=== PATIENT | male | born 1950 | race Caucasian/White ===

== ENCOUNTER 2022-07-09 16:31 | Inpatient (IN) ==
[2022-07-09] MEDS ORDERED: VANCOMYCIN INJ 1,000 MG in SODIUM CHLORIDE 0.9% 250 ML IV STA (17:09)
[2022-07-09] MEDS ORDERED: SODIUM CHLORIDE 0.9% 1,000 ML IV STA (17:09)
[2022-07-09] MEDS ORDERED: ALBUTEROL 2.5 MG/3 ML NEB RESP TX PRN (17:24)
[2022-07-09] MEDS ORDERED: ONDANSETRON 4 MG/2 ML VIAL IV PRN (17:24)
[2022-07-09] MEDS ORDERED: LACTATED RINGERS 1,000 ML IV ONE ×2 (17:29→22:30)
[2022-07-09] MEDS: NOREPINEPHRINE 8 MG in SODIUM CHLORIDE 0.9% 242 ML IV PRN (17:39)
[2022-07-09] MEDS ORDERED: fentaNYL 100 MCG/2 ML VIAL IV STA (17:41)
[2022-07-09] MEDS ORDERED: fentaNYL 100 MCG/2 ML VIAL ONE (17:42)
[2022-07-09] MEDS ORDERED: cefTRIAXone 1,000 MG in SODIUM CHLORIDE 0.9% 100 ML IV ONE (17:43)
[2022-07-09] MEDS ORDERED: MIDAZOLAM 2 MG/2 ML VIAL ONE ×2 (18:07→19:25)
[2022-07-09] MEDS ORDERED: ETOMIDATE 40 MG/20 ML VIAL IV ONE (18:07)
[2022-07-09] MEDS ORDERED: SEVOFLURANE 1 UNIT/15 MINUTE INH ONE (18:07)
[2022-07-09] MEDS ORDERED: ROCURONIUM 50 MG/5 ML VIAL IV ONE ×2 (18:07→19:25)
[2022-07-09] MEDS ORDERED: LIDOCAINE 2% 5 ML VIAL ONE (18:07)
[2022-07-09 18:19] LABS: Basophils % 0.2 % (0.0-0.8); Eosinophils % 0.1 % (0.00-10.9); Hematocrit 33.4 VOL% (42.0-52.0); Hemoglobin 10.4 GM/DL (14.0-18.0); Immature Granulocytes % 1.6 %; Immature Granulocytes Absolute 0.32 #; Lymphocytes # 0.6 10*3/uL (1.4-4.0); Lymphocytes % 2.7 % (21.2-54.2); Mean Corpuscular HGB Conc 31.1 GM/DL (32-36); Mean Corpuscular Volume 94.1 FL (87-102); Mean Platelet Volume 9.5 FL (9.6-12.0); Monocytes # 1.2 10*3/uL (0.11-0.8); Monocytes % 5.6 % (1.7-12.7); Neutrophils % 89.8 % (38.7-73.9); Platelet Count 310 T/CUMM (130-400); Red Blood Count 3.55 MC/CUMM (3.8-5.5); Red Cell Distribution Width 12.7 % (9.3-17.3); White Blood Count 20.6 T/CUMM (4-12)
[2022-07-09 18:39] LABS: Albumin 2.6 G/DL (3.4-5.0); Bilirubin,Total 0.7 MG/DL (0.20-1.00); Thyroid Stimulating Hormone 0.326 uIU/ml (0.358-3.74); Total Protein 6.7 G/DL (6.4-8.2)
[2022-07-09 19:09] LABS: RBC,Urine 63 /HPF (0-4); Squamous Epithelial Cell,Urine Occasional /HPF (0-10)
[2022-07-09 19:10] LABS: Glucose,Urine (UA) Negative (Negative); Ketones,Urine 15 mg/dL (Negative); Nitrite,Urine Negative (Negative); Protein,Urine 30 mg/dL (Negative); Urine Appearance Clear (Clear); Urine Color Dark Yellow (Yellow); Urine Specific Gravity 1.025 (1.001-1.035); Urine pH 5.5 (4.5-8.0)
[2022-07-09 19:11] LABS: Bilirubin,Urine Small mg/dL (Negative); Blood, Urine Large mg/dL (Negative)
[2022-07-09] MEDS ORDERED: MIDAZOLAM DRIP 100 MG/100 ML PREMIX IV PRN (19:45)
[2022-07-09] MEDS ORDERED: fentaNYL 100 MCG/2 ML VIAL IV ONE (19:49)
[2022-07-09] MEDS: HYDROCORTISONE 100 MG VIAL IV SCH (20:01)
[2022-07-09] MEDS: PANTOPRAZOLE 40 MG VIAL IV SCH (20:07)
[2022-07-09 20:22] LABS: ABG Base Excess -2.6 MMOL/L (-2.5-2.5); ABG HCO3 22.2 MMOL/L (20-26); ABG Oxygen Saturation 97.5 % (95-100); ABG PCO2 39.9 MM HG (35-48); ABG TCO2 20.4 MMOL/L (23-27)
[2022-07-09] MEDS: ENOXAPARIN 40 MG/0.4 ML SYRINGE SUBCUT SCH (20:35)
[2022-07-09 21:58] LABS: Band Neutrophils 9 % (0-10); Lymphocytes 6 % (20-55); Total Cells Counted 100
[2022-07-09 21:59] LABS: Platelet Estimate Normal
[2022-07-10] MEDS: HYDROCORTISONE 100 MG VIAL IV SCH ×3 (02:22→17:38)
[2022-07-10 04:14] LABS: ABG Base Excess 0.2 MMOL/L (-2.5-2.5); ABG HCO3 24.6 MMOL/L (20-26); ABG Oxygen Saturation 99.4 % (95-100); ABG PCO2 37.8 MM HG (35-48); ABG PH 7.419 (7.35-7.45); ABG TCO2 21.8 MMOL/L (23-27)
[2022-07-10 04:26] LABS: Basophils % 0.2 % (0.0-0.8); Eosinophils % 0.1 % (0.00-10.9); Hematocrit 31.3 VOL% (42.0-52.0); Hemoglobin 10.1 GM/DL (14.0-18.0); Immature Granulocytes % 1.3 %; Immature Granulocytes Absolute 0.32 #; Lymphocytes # 0.6 10*3/uL (1.4-4.0); Lymphocytes % 2.4 % (21.2-54.2); Mean Corpuscular HGB Conc 32.3 GM/DL (32-36); Mean Corpuscular Volume 90.5 FL (87-102); Mean Platelet Volume 9.5 FL (9.6-12.0); Monocytes # 1.3 10*3/uL (0.11-0.8); Monocytes % 5.1 % (1.7-12.7); Neutrophils % 90.9 % (38.7-73.9); Platelet Count 316 T/CUMM (130-400); Red Blood Count 3.46 MC/CUMM (3.8-5.5); Red Cell Distribution Width 13.1 % (9.3-17.3)
[2022-07-10 04:40] LABS: Albumin 2.3 G/DL (3.4-5.0); Calcium 8.7 MG/DL (8.5-10.1); Osmolality,Calculated 283.8 MOS/KG (273-304); Potassium 4.4 MMOL/L (3.5-5.1); Total Protein 6.3 G/DL (6.4-8.2)
[2022-07-10 05:17] LABS: Band Neutrophils 7 % (0-10); Lymphocytes 2 % (20-55); Metamyelocytes 3 %; Microcytosis Slight; Ovalocytes Slight; Total Cells Counted 100
[2022-07-10 05:18] LABS: Platelet Estimate Normal
[2022-07-10] MEDS: cefTRIAXone 1,000 MG in SODIUM CHLORIDE 0.9% 100 ML IV SCH (09:40)
[2022-07-10] MEDS: PROPAFENONE 150 MG TABLET PO SCH ×2 (11:17→20:41)
[2022-07-10 13:25] LABS: Arterial Base Excess iSTAT 2 MMOL/L (-2.5-2.5); Arterial Bicarbonate iSTAT 27.1 MMOL/L (20-26); Arterial O2 Saturation iSTAT 97 % (95-100); Arterial PCO2 iSTAT 41 MM HG (35-48); Arterial PO2 iSTAT 93 MM HG (80-95); Arterial Total CO2 iSTAT 28 MMO/L (23-27); Arterial pH iSTAT 7.424 (7.35-7.45)
[2022-07-10] MEDS: PANTOPRAZOLE 40 MG VIAL IV SCH (17:17)
[2022-07-10] MEDS: ENOXAPARIN 40 MG/0.4 ML SYRINGE SUBCUT SCH (20:41)
[2022-07-11] MEDS: NOREPINEPHRINE 8 MG in SODIUM CHLORIDE 0.9% 242 ML IV PRN (02:34)
[2022-07-11] MEDS: HYDROCORTISONE 100 MG VIAL IV SCH ×3 (03:01→18:16)
[2022-07-11 03:24] LABS: ABG Base Excess 2.3 MMOL/L (-2.5-2.5); ABG HCO3 26.4 MMOL/L (20-26); ABG Oxygen Saturation 96.5 % (95-100); ABG PCO2 49.8 MM HG (35-48); ABG PH 7.364 (7.35-7.45); ABG PO2 86.4 MM HG (80-95); ABG TCO2 25.9 MMOL/L (23-27); Basophils % 0.1 % (0.0-0.8); Eosinophils % 0.1 % (0.00-10.9); Immature Granulocytes % 1.7 %; Immature Granulocytes Absolute 0.46 #; Lymphocytes # 1.5 10*3/uL (1.4-4.0); Lymphocytes % 5.6 % (21.2-54.2); Mean Corpuscular HGB Conc 32.3 GM/DL (32-36); Mean Corpuscular Volume 93.4 FL (87-102); Mean Platelet Volume 9.8 FL (9.6-12.0); Monocytes # 1.7 10*3/uL (0.11-0.8); Monocytes % 6.2 % (1.7-12.7); Neutrophils % 86.3 % (38.7-73.9); Platelet Count 320 T/CUMM (130-400); Red Blood Count 3.32 MC/CUMM (3.8-5.5); Red Cell Distribution Width 13.2 % (9.3-17.3); White Blood Count 27.5 T/CUMM (4-12)
[2022-07-11 03:38] LABS: Calcium 8.7 MG/DL (8.5-10.1); Potassium 4.1 MMOL/L (3.5-5.1)
[2022-07-11 04:08] LABS: Band Neutrophils 2 % (0-10); Lymphocytes 8 % (20-55); Total Cells Counted 100
[2022-07-11 04:09] LABS: Platelet Estimate Normal
[2022-07-11] MEDS ORDERED: LACTATED RINGERS 250 ML IV ONE (05:27)
[2022-07-11] MEDS: LACTATED RINGERS 1,000 ML IV SCH ×2 (06:50→18:05)
[2022-07-11] MEDS: cefTRIAXone 1,000 MG in SODIUM CHLORIDE 0.9% 100 ML IV SCH (09:35)
[2022-07-11] MEDS: PROPAFENONE 150 MG TABLET PO SCH ×2 (09:42→20:47)
[2022-07-11] MEDS: AMPICILLIN INJ 1,000 MG in SODIUM CHLORIDE 0.9% 100 ML IV SCH ×3 (10:21→20:47)
[2022-07-11] MEDS: PANTOPRAZOLE 40 MG VIAL IV SCH (16:56)
[2022-07-11] MEDS: MORPHINE 2 MG/1 ML SYRINGE IV PRN (19:46)
[2022-07-11] MEDS: ENOXAPARIN 40 MG/0.4 ML SYRINGE SUBCUT SCH (20:47)
[2022-07-11] MEDS: busPIRone 5 MG TABLET PO PRN (22:34)
[2022-07-12] MEDS: MORPHINE 2 MG/1 ML SYRINGE IV PRN ×3 (02:54→18:02)
[2022-07-12] MEDS: AMPICILLIN INJ 1,000 MG in SODIUM CHLORIDE 0.9% 100 ML IV SCH ×2 (02:55→08:00)
[2022-07-12] MEDS: HYDROCORTISONE 100 MG VIAL IV SCH ×4 (02:55→18:02)
[2022-07-12 04:26] LABS: Basophils % 0.1 % (0.0-0.8); Hematocrit 29.8 VOL% (42.0-52.0); Hemoglobin 9.5 GM/DL (14.0-18.0); Immature Granulocytes % 1.2 %; Immature Granulocytes Absolute 0.28 #; Lymphocytes # 1.5 10*3/uL (1.4-4.0); Lymphocytes % 6.5 % (21.2-54.2); Mean Corpuscular HGB Conc 31.9 GM/DL (32-36); Mean Corpuscular Volume 91.7 FL (87-102); Mean Platelet Volume 10.5 FL (9.6-12.0); Monocytes # 0.8 10*3/uL (0.11-0.8); Monocytes % 3.6 % (1.7-12.7); Neutrophils % 88.6 % (38.7-73.9); Platelet Count 315 T/CUMM (130-400); Red Blood Count 3.25 MC/CUMM (3.8-5.5); Red Cell Distribution Width 13.2 % (9.3-17.3); White Blood Count 22.5 T/CUMM (4-12)
[2022-07-12 04:54] LABS: Calcium 8.5 MG/DL (8.5-10.1); Osmolality,Calculated 298.8 MOS/KG (273-304); Potassium 4.2 MMOL/L (3.5-5.1)
[2022-07-12 05:19] LABS: Band Neutrophils 6 % (0-10); Hypochromia Slight; Lymphocytes 10 % (20-55); Microcytosis Slight; Total Cells Counted 100
[2022-07-12 05:20] LABS: Ovalocytes Slight
[2022-07-12] MEDS: PROPAFENONE 150 MG TABLET PO SCH ×2 (09:17→20:35)
[2022-07-12] MEDS: LACTATED RINGERS 1,000 ML IV SCH ×2 (09:47→09:48)
[2022-07-12] MEDS: CIPROFLOXACIN INJ 400 MG/200 ML PREMIX IV SCH ×2 (10:55→23:50)
[2022-07-12] MEDS: PANTOPRAZOLE 40 MG VIAL IV SCH (18:02)
[2022-07-12] MEDS: ENOXAPARIN 40 MG/0.4 ML SYRINGE SUBCUT SCH (20:36)
[2022-07-13] MEDS: MORPHINE 2 MG/1 ML SYRINGE IV PRN ×5 (01:18→21:13)
[2022-07-13] MEDS: LACTATED RINGERS 1,000 ML IV SCH ×2 (01:19→17:11)
[2022-07-13] MEDS: HYDROCORTISONE 100 MG VIAL IV SCH ×3 (01:47→20:19)
[2022-07-13 05:31] LABS: Basophils % 0.1 % (0.0-0.8); Hematocrit 29.4 VOL% (42.0-52.0); Hemoglobin 9.5 GM/DL (14.0-18.0); Immature Granulocytes % 1.4 %; Lymphocytes # 1.7 10*3/uL (1.4-4.0); Lymphocytes % 11.6 % (21.2-54.2); Mean Corpuscular HGB Conc 32.3 GM/DL (32-36); Mean Platelet Volume 10.3 FL (9.6-12.0); Monocytes # 0.6 10*3/uL (0.11-0.8); Monocytes % 4.4 % (1.7-12.7); Neutrophils % 82.5 % (38.7-73.9); Platelet Count 272 T/CUMM (130-400); Red Blood Count 3.23 MC/CUMM (3.8-5.5); Red Cell Distribution Width 13.2 % (9.3-17.3); White Blood Count 14.3 T/CUMM (4-12)
[2022-07-13 05:48] LABS: Bilirubin,Total 0.4 MG/DL (0.20-1.00); Calcium 8.9 MG/DL (8.5-10.1); Osmolality,Calculated 294.1 MOS/KG (273-304); Potassium 4.1 MMOL/L (3.5-5.1); Total Protein 5.3 G/DL (6.4-8.2)
[2022-07-13] MEDS: PROPAFENONE 150 MG TABLET PO SCH ×2 (08:55→20:20)
[2022-07-13] MEDS: CIPROFLOXACIN INJ 400 MG/200 ML PREMIX IV SCH (13:04)
[2022-07-13] MEDS: AMPICILLIN INJ 2,000 MG in SODIUM CHLORIDE 0.9% 100 ML IV SCH ×2 (17:10→21:13)
[2022-07-13] MEDS: PANTOPRAZOLE 40 MG VIAL IV SCH (17:11)
[2022-07-13] MEDS: ENOXAPARIN 40 MG/0.4 ML SYRINGE SUBCUT SCH (20:20)
[2022-07-14] MEDS: MORPHINE 2 MG/1 ML SYRINGE IV PRN ×2 (01:46→10:21)
[2022-07-14] MEDS: HYDROCORTISONE 100 MG VIAL IV SCH ×2 (04:29→21:09)
[2022-07-14] MEDS: AMPICILLIN INJ 2,000 MG in SODIUM CHLORIDE 0.9% 100 ML IV SCH ×4 (04:29→21:09)
[2022-07-14 05:14] LABS: Basophils % 0.1 % (0.0-0.8); Hemoglobin 9.9 GM/DL (14.0-18.0); Immature Granulocytes % 3.5 %; Immature Granulocytes Absolute 0.39 #; Lymphocytes # 2.4 10*3/uL (1.4-4.0); Lymphocytes % 21.5 % (21.2-54.2); Mean Corpuscular HGB Conc 31.9 GM/DL (32-36); Mean Corpuscular Volume 90.4 FL (87-102); Mean Platelet Volume 10.2 FL (9.6-12.0); Monocytes # 0.9 10*3/uL (0.11-0.8); Monocytes % 8.4 % (1.7-12.7); Neutrophils % 66.5 % (38.7-73.9); Platelet Count 312 T/CUMM (130-400); Red Blood Count 3.43 MC/CUMM (3.8-5.5); Red Cell Distribution Width 13.3 % (9.3-17.3)
[2022-07-14 05:33] LABS: Bilirubin,Total 0.4 MG/DL (0.20-1.00); Calcium 8.8 MG/DL (8.5-10.1); Potassium 3.8 MMOL/L (3.5-5.1); Total Protein 5.4 G/DL (6.4-8.2)
[2022-07-14] MEDS: PROPAFENONE 150 MG TABLET PO SCH ×2 (08:55→21:08)
[2022-07-14] MEDS: LACTATED RINGERS 1,000 ML IV SCH ×3 (08:55→22:15)
[2022-07-14] MEDS: LOSARTAN 50 MG TABLET PO SCH (12:11)
[2022-07-14] MEDS: ENOXAPARIN 100 MG/ML SYRINGE SUBCUT SCH ×2 (12:12→21:45)
[2022-07-14] MEDS: traMADol 50 MG TABLET PO PRN ×2 (15:47→21:08)
[2022-07-14] MEDS: PANTOPRAZOLE 40 MG VIAL IV SCH (17:38)
[2022-07-14] MEDS: busPIRone 5 MG TABLET PO PRN (21:08)
[2022-07-15] MEDS: traMADol 50 MG TABLET PO PRN ×5 (01:20→21:46)
[2022-07-15] MEDS: AMPICILLIN INJ 2,000 MG in SODIUM CHLORIDE 0.9% 100 ML IV SCH ×4 (04:53→21:47)
[2022-07-15 06:28] LABS: Basophils % 0.2 % (0.0-0.8); Eosinophils # 0.1 10*3/uL (0.0-0.87); Eosinophils % 0.6 % (0.00-10.9); Hematocrit 30.2 VOL% (42.0-52.0); Hemoglobin 9.7 GM/DL (14.0-18.0); Immature Granulocytes % 3.8 %; Immature Granulocytes Absolute 0.34 #; Lymphocytes # 2.4 10*3/uL (1.4-4.0); Lymphocytes % 26.9 % (21.2-54.2); Mean Corpuscular HGB Conc 32.1 GM/DL (32-36); Mean Platelet Volume 10.4 FL (9.6-12.0); Monocytes % 11.4 % (1.7-12.7); Neutrophils % 57.1 % (38.7-73.9); Platelet Count 320 T/CUMM (130-400); Red Blood Count 3.32 MC/CUMM (3.8-5.5); Red Cell Distribution Width 13.3 % (9.3-17.3)
[2022-07-15 06:53] LABS: Calcium 8.5 MG/DL (8.5-10.1); Osmolality,Calculated 294.7 MOS/KG (273-304); Potassium 3.7 MMOL/L (3.5-5.1)
[2022-07-15] MEDS: ENOXAPARIN 100 MG/ML SYRINGE SUBCUT SCH ×2 (09:12→21:47)
[2022-07-15] MEDS: LOSARTAN 50 MG TABLET PO SCH (09:12)
[2022-07-15] MEDS: PROPAFENONE 150 MG TABLET PO SCH ×2 (09:12→21:46)
[2022-07-15] MEDS: HYDROCORTISONE 100 MG VIAL IV SCH ×2 (09:13→21:47)
[2022-07-15] MEDS: LACTULOSE 20 GM/30 ML UDCUP PO SCH ×2 (10:41→21:45)
[2022-07-15] MEDS: MORPHINE 2 MG/1 ML SYRINGE IV PRN (13:40)
[2022-07-15] MEDS: PANTOPRAZOLE 40 MG VIAL IV SCH (17:23)
[2022-07-15] MEDS: LACTATED RINGERS 1,000 ML IV SCH (19:32)
[2022-07-16] MEDS: traMADol 50 MG TABLET PO PRN ×5 (02:52→21:46)
[2022-07-16] MEDS: AMPICILLIN INJ 2,000 MG in SODIUM CHLORIDE 0.9% 100 ML IV SCH ×4 (04:22→21:48)
[2022-07-16] MEDS ORDERED: cefTRIAXone 1,000 MG in SODIUM CHLORIDE 0.9% 100 ML IV ONE (07:52)
[2022-07-16] MEDS: LOSARTAN 50 MG TABLET PO SCH (09:51)
[2022-07-16] MEDS: HYDROCORTISONE 100 MG VIAL IV SCH ×2 (09:51→21:48)
[2022-07-16] MEDS: LACTULOSE 20 GM/30 ML UDCUP PO SCH ×2 (09:51→21:46)
[2022-07-16] MEDS: PROPAFENONE 150 MG TABLET PO SCH ×2 (09:52→21:45)
[2022-07-16] MEDS: ENOXAPARIN 100 MG/ML SYRINGE SUBCUT SCH ×2 (10:01→21:54)
[2022-07-16] MEDS ORDERED: hydrALAZINE 20 MG/1 ML VIAL IV PRN (12:45)
[2022-07-16] MEDS: PANTOPRAZOLE 40 MG VIAL IV SCH (18:32)
[2022-07-16] MEDS: LACTATED RINGERS 1,000 ML IV SCH ×2 (21:50→22:15)
[2022-07-17] MEDS: MORPHINE 2 MG/1 ML SYRINGE IV PRN ×5 (00:22→18:20)
[2022-07-17] MEDS: AMPICILLIN INJ 2,000 MG in SODIUM CHLORIDE 0.9% 100 ML IV SCH ×4 (04:04→21:53)
[2022-07-17] MEDS: LOSARTAN 50 MG TABLET PO SCH (09:40)
[2022-07-17] MEDS: PROPAFENONE 150 MG TABLET PO SCH ×2 (09:40→21:54)
[2022-07-17] MEDS: HYDROCORTISONE 100 MG VIAL IV SCH ×2 (09:44→21:54)
[2022-07-17] MEDS ORDERED: cefTRIAXone 1,000 MG in SODIUM CHLORIDE 0.9% 100 ML IV ONE (11:30)
[2022-07-17] MEDS ORDERED: LIDOCAINE 2% 5 ML VIAL ONE (12:09)
[2022-07-17] MEDS ORDERED: ONDANSETRON 4 MG/2 ML VIAL ONE (12:09)
[2022-07-17] MEDS ORDERED: propofoL 200 MG/20 ML VIAL IV ONE (12:09)
[2022-07-17] MEDS ORDERED: fentaNYL 100 MCG/2 ML VIAL ONE (12:11)
[2022-07-17] MEDS ORDERED: NEOMYCIN/POLYMYXIN IRRIG SOLN 1 ML AMP BLADDERIRR ONE (12:28)
[2022-07-17] MEDS ORDERED: ePHEDrine 50 MG/ML VIAL ONE (12:49)
[2022-07-17] MEDS ORDERED: TUBERCULIN SKIN TEST 0.1 ML SYRINGE INTRADERM ONE (13:00)
[2022-07-17] MEDS: ENOXAPARIN 100 MG/ML SYRINGE SUBCUT SCH ×2 (13:07→21:54)
[2022-07-17] MEDS ORDERED: SEVOFLURANE 1 UNIT/15 MINUTE INH ONE (13:10)
[2022-07-17] MEDS: LACTULOSE 20 GM/30 ML UDCUP PO SCH ×2 (15:01→21:54)
[2022-07-17] MEDS: LACTATED RINGERS 1,000 ML IV SCH (15:03)
[2022-07-17] MEDS: traMADol 50 MG TABLET PO PRN ×2 (15:15→21:55)
[2022-07-17] MEDS: PANTOPRAZOLE 40 MG VIAL IV SCH (18:20)
[2022-07-18] MEDS: AMPICILLIN INJ 2,000 MG in SODIUM CHLORIDE 0.9% 100 ML IV SCH ×3 (03:24→14:55)
[2022-07-18] MEDS: PANTOPRAZOLE 40 MG VIAL IV SCH (05:38)
[2022-07-18] MEDS: LACTATED RINGERS 1,000 ML IV SCH ×3 (05:40→11:47)
[2022-07-18] MEDS: traMADol 50 MG TABLET PO PRN ×3 (05:41→14:55)
[2022-07-18] MEDS: PROPAFENONE 150 MG TABLET PO SCH (09:48)
[2022-07-18] MEDS: LACTULOSE 20 GM/30 ML UDCUP PO SCH (09:49)
[2022-07-18] MEDS: LOSARTAN 50 MG TABLET PO SCH (09:49)
[2022-07-18] MEDS: ENOXAPARIN 100 MG/ML SYRINGE SUBCUT SCH (09:51)
[2022-07-18] MEDS: HYDROCORTISONE 100 MG VIAL IV SCH (10:10)
[2022-07-18 12:25] VITALS: BP 160/57
[2022-07-18] MEDS ORDERED: HYDROCORTISONE 100 MG VIAL IV SCH (21:00)
== END 2022-07-18 15:05 | DRG 854 ==
LOC: N.ED 16:31 → SUATTDRO 17:24 → N.EDINP 17:24 → N.CC 19:58 → N.5E 07-12 11:07
PROVIDERS: ADMIT Internal Medicine; ATTEND Internal Medicine